=== PATIENT | male | born 1995 | race Caucasian/White ===

== ENCOUNTER 2019-06-20 19:14 | Emergency (ER) | payer OTHER ==
[2019-06-20] MEDS ORDERED: HYDROMORPHONE HCL INJ/PF 2 MG/ML AMPULE IV ONE ×3 (19:25→19:48)
[2019-06-20] MEDS ORDERED: HYDROMORPHONE HCL INJ/PF 2 MG/ML AMPULE ONE ×3 (19:25→19:49)
[2019-06-20] MEDS ORDERED: ONDANSETRON HCL INJ/PF 4 MG/2 ML SDV ONE (19:26)
[2019-06-20] MEDS ORDERED: ONDANSETRON HCL INJ/PF 4 MG/2 ML SDV IV ONE (19:28)
[2019-06-20] MEDS ORDERED: RINGERS SOLUTION,LACTATED 1,000 ML IV ONE (19:52)
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
[2019-06-20 23:03] VITALS: BP 127/90
== END 2019-06-20 23:15 | disposition short-term general hospital (02) ==
LOC: ER 19:14
DX: T20.22XA Burn of second degree of lip(s), initial encounter (principal); T20.29XA Burn of second degree of multiple sites of head, face, and neck, initial encounter; T20.212A Burn of second degree of left ear [any part, except ear drum], initial encounter; T20.211A Burn of second degree of right ear [any part, except ear drum], initial encounter; T22.221A Burn of second degree of right elbow, initial encounter; T23.201A Burn of second degree of right hand, unspecified site, initial encounter; T23.252A Burn of second degree of left palm, initial encounter; T25.212A Burn of second degree of left ankle, initial encounter; T25.211A Burn of second degree of right ankle, initial encounter; T22.291A Burn of second degree of multiple sites of right shoulder and upper limb, except wrist and hand, initial encounter; T22.292A Burn of second degree of multiple sites of left shoulder and upper limb, except wrist and hand, initial encounter; T20.17XA Burn of first degree of neck, initial encounter; T24.021A Burn of unspecified degree of right knee, initial encounter; X08.8XXA Exposure to other specified smoke, fire and flames, initial encounter; W40.1XXA Explosion of explosive gases, initial encounter; Y93.89 Activity, other specified; Y92.009 Unspecified place in unspecified non-institutional (private) residence as the place of occurrence of the external cause; Z72.0 Tobacco use
CPT/HCPCS: J1170; J2405; J7120; 96361; 96374; 96375; 99285